=== PATIENT | female | born 1980 | race Caucasian/White ===

== ENCOUNTER 2017-02-08 06:37 | Emergency (ER) | payer OTHER ==
--- NOTE | 2017-02-08 09:15 | ED CLINICAL REPORT ---
Clinical Report - Physicians/Mid Levels [facility] [address] [place] [address] 02/08/2017 6:38 Patient: YEIMY VILLEDA Time Seen: 06:52. Arrived- By private vehicle. Historian- patient. HISTORY OF PRESENT ILLNESS Chief Complaint: SORE THROAT. This started yesterday and is still present. It was abrupt in onset and has been constant and waxing/waning. Pain described as moderate. The patient has had a sore throat, nasal congestion and a nasal discharge. Similar symptoms previously: Several times. REVIEW OF SYSTEMS No chills, fever, sweats, calf pain or chest pain. No cough, difficulty breathing, pedal edema, palpitations or abdominal pain. No constipation, diarrhea, nausea, vomiting or urinary problems. All systems otherwise negative, except as recorded above. PAST HISTORY Problems: Hypertension. Laceration. Additional Surgeries: . Knee Surgery. Medications: AmLODIPine Besylate Oral. Atenolol Oral. Wellbutrin Oral. Allergies: LIsinopril. SOCIAL HISTORY Never smoker. No alcohol use or drug use. FAMILY HISTORY No significant family medical history. ADDITIONAL NOTES The nursing notes have been reviewed. PHYSICAL EXAM Vital Signs: 02/08/2017 06:45 BP: 126/74. HR: 97. RR: 18. O2 saturation: 100%. Temp: 98.7 F. Pain level now: 4/10. Have been reviewed. Appearance: Alert. No acute distress. Head: No mandibular swelling or maxillary swelling. Eyes: Pupils equal, round and reactive to light. ENT: Minimal, thick, white nasal discharge present. Pharyngeal erythema. Lips normal. Gums normal. No trismus present. Uvula midline. No tonsillar exudate or peritonsillar mass. Neck: Normal inspection. Trachea midline. No adenopathy. Thyroid normal. Neck supple. CVS: Normal heart rate and rhythm. Heart sounds normal. Respiratory: No respiratory distress. Breath sounds normal. Abdomen: Soft and nontender. No organomegaly. Skin: Normal skin color. No rash. Normal skin turgor. Extremities: Extremities exhibit normal ROM. LABS, X-RAYS, AND EKG Laboratory Tests: Monoscreen: (BLANCA: 02/08/2017 08:25) ( MsgRcvd 02/08/2017 09:10) Final results Test Result Flag Units (Reference) MONOSCREEN NEGATIVE (NEGATIVE) Culture, Strep Screen: (BLANCA: 02/08/2017 06:47) ( MsgRcvd 02/10/2017 11:27) Final results Test Result Flag Units (Reference) RAPID STREP SCREEN - THROAT DATE: 02/08/17 NEGATIVE SCREEN: RAPID STREP SCREEN NEGATIVE; CONFIRMATION TO FOLLOW . DATE: 02/10/17 NO BETA STREP ISOLATED: NO BETA STREP ISOLATED . PROGRESS AND PROCEDURES Course of Care: Patient is stable. Patient/family counseled. Old medical records reviewed. Disposition: Discharged. Condition: stable. CLINICAL IMPRESSION Acute viral pharyngitis nasal congestion. INSTRUCTIONS Drink plenty of fluids. Warnings: GENERAL WARNINGS: Return or contact your physician immediately if your condition worsens or changes unexpectedly, if not improving as expected, or if other problems arise. Prescription Medications: Chloraseptic spray dispense one bottle - use as directed. no refills. OTC Medications: Afrin nasal spray (Available over the counter): 1 spray to each nostril twice daily for 3 days, for congestion. Follow-up: Follow up with your doctor in seven days if not better. Understanding of the discharge instructions verbalized by patient. (Electronically signed by Migue Matthew MD 02/10/2017 12:52)
--- NOTE | 2017-02-08 09:15 | ED ORDER SUMMARY ---
..... Patient: YEIMY VILLEDA OrderSheet [facility] VisitID: [id number] [address] [place] [address] 36y, F Registration Date/Time: 02/08/2017 ORDER SHEET Weight: 102.0 kg Allergies: LIsinopril GENERAL ORDERS: Culture, Strep Screen Urgent (06:54 02/08/2017 Ajit R.NIla per protocol) (6:54 Ajit R.N.) Monoscreen Urgent (08:16 02/08/2017 Milagros HOWARD) (Ack 8:20 LNations ER Tech1) (8:36 Anupam Samuel.Telma) MEDICATION ORDERS: IV FLUIDS: ORDER SHEET NOTES: [Electronically signed by Thelma Gatica R.N. (19:13 02/08/2017)] [Electronically signed by Migue Matthew MD (12:52 02/10/2017)] [Electronically locked/signed by Thelma Gatica R.N. (19:13 02/08/2017)]
--- NOTE | 2017-02-08 09:15 | ED NURSING NOTES ---
Clinical Report - Nurses [facility] [address] [place] [address] 02/08/2017 6:38 Patient: YEIMY VILLEDA TRIAGE Triage time 06:45. Acuity: LEVEL 4. Chief Complaint: SORE THROAT. --06:50 TonyaB, R.N. 06:45 02/08/17. BP: 126/74. HR: 97. RR: 18. O2 saturation: 100%. Temp: 98.7 F. Pain level now: 02/10. --06:50 TonyaB, R.N. Weight: 102 kg. Height/Length: 65 inches. BMI: 37.5. --06:49 TonyaB, R.N. Medications Wellbutrin Oral. --06:48 TonyaB, R.N. Atenolol Oral. --06:48 TonyaB, R.N. AmLODIPine Besylate Oral. --06:49 TonyaB, R.N. Allergies LIsinopril. --06:47 TonyaB, R.N. History Arrived by private vehicle. Historian: patient. Accompanied by family. This started yesterday. 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 PAST MEDICAL HX: Immunizations: up-to-date. Last normal menstrual period unknown. SOCIAL HX: Never smoker. No alcohol use or drug use. No infectious disease exposure. SELF HARM ASSESSMENT: A self harm assessment was performed. The patient answered "no" to the question "Have you recently felt down, depressed, or hopeless?", "Have you noticed less interest or pleasure in doing things?", "Do you have thoughts of harming or killing yourself?", "Are you here because you tried to hurt yourself?", "Have you ever tried to hurt yourself before today?", "Have you recently had thoughts about harming or killing others?" and "Do you have any dangerous items in your possession?". FALL RISK ASSESSMENT: Fall risk assessment completed. No fall risk identified. NUTRITIONAL RISK ASSESSMENT: The nutritional risk assessment revealed no deficiencies. FUNCTIONAL ASSESSMENT: Functional assessment: no impairments noted. LEARNING NEEDS ASSESSMENT: The learning needs assessment revealed no barriers. SKIN INTEGRITY ASSESSMENT: Skin integrity risk assessment completed. No skin integrity risk identified. --06:50 Kyle Hammond PROBLEMS: Hypertension. --06:47 Gisell Hammond. ADDITIONAL SURGERIES: . Knee Surgery. --06:47 Kyle Hammond Interventions ID band on patient. --06:50 Gisell Hammond. PHYSICAL ASSESSMENT Ambulatory to room. GENERAL / NEURO / PSYCH: Alert. Oriented X 4. Appears in no acute distress. HEENT: Pupils equal, round and reactive to light. Runny nose. Pharyngeal erythema. Mouth within normal limits upon inspection. No dental injury noted. Mucous membranes are pink. RESPIRATORY: Respirations not labored. CVS: Capillary refill less than 2 seconds. SKIN: Skin is warm and dry. Normal skin turgor. --06:50 Kyle Hammond NURSING PROGRESS NOTES Patient identifiers checked. Call light placed in reach. Side rails up. Bed placed in lowest position. Brakes of bed on. --06:51 Kyle Hammond Checked patient name and birthdate: patient confirmed. Throat swab obtained for rapid strep; labeled in the presence of the patient and sent to lab. --06:51 Kyle Hammond 07:05 02/08/17. Care transferred and report received (from LEILANI Mendez). --07:05 Thelma Gatica R.N. Care transferred and report received (from LEILANI Mendez). --07:07 Racquel Tyson R.N. 07:12 02/08/17. Patient and family informed about reason for wait and about plan of care. ( Patient is resting quietly in room. Lights dimmed.). --07:12 Thelma Gatica R.N. 07:33 02/08/17. The patient reports no complaints and she is calm and resting quietly. --07:33 Jose R Ham R.N. 07:52 02/08/17. Patient informed about reason for wait and about plan of care. --07:52 Thelma Gatica R.N. 07:51 02/08/17. BP: 127/82. HR: 85. RR: 15. O2 saturation: 98%. Temp: deferred. Pain level now: 05/12. --07:52 Thelma Gatica R.N. DISPOSITION / DISCHARGE 09:44 02/08/17. No learning barriers present. Discharge instructions provided and reviewed with the patient and family. Treatments reviewed. Reviewed referrals. Patient verbalized understanding. Written instructions provided in Korean. ( Patient was concerned about the number of blood vials drawn by lab. This RN explained to the patient that only a mono test was done from those vials, as reflected in the "lab tests" section of her discharge papers. Patient verbalized understanding and stated that she had no further questions.). The patient was discharged by the physician. She was discharged home and accompanied by family. She left the Emergency Department ambulatory and via private vehicle. --09:44 Thelma Gatica R.N. 07:51 02/08/17. BP: 127/82. HR: 85. RR: 15. O2 saturation: 98%. Temp: deferred. Pain level now: 05/12. --09:44 Thelma Gatica R.N. Locked/Released at 02/08/2017 19:13 by Thelma Gatica R.N.
--- NOTE | 2017-02-08 09:15 | ED ORDER SUMMARY ---
..... Patient: YEIMY VILLEDA OrderSheet [facility] VisitID: [id number] [address] [place] [address] 36y, F Registration Date/Time: 02/08/2017 ORDER SHEET Weight: 102.0 kg Allergies: LIsinopril GENERAL ORDERS: Culture, Strep Screen Urgent (06:54 02/08/2017 Ajit R.NIla per protocol) (6:54 Ajit R.N.) Monoscreen Urgent (08:16 02/08/2017 Milagros HOWARD) (Ack 8:20 LNations ER Tech1) (8:36 Anupam Samuel.Telma) MEDICATION ORDERS: IV FLUIDS: ORDER SHEET NOTES: [Electronically signed by Thelma Gatica R.N. (19:13 02/08/2017)] [Electronically signed by Migue Matthew MD (12:52 02/10/2017)] [Electronically locked/signed by Thelma Gatica R.N. (19:13 02/08/2017)]
--- NOTE | 2017-02-08 09:15 | ED NURSING NOTES ---
Clinical Report - Nurses [facility] [address] [place] [address] 02/08/2017 6:38 Patient: YEIMY VILLEDA TRIAGE Triage time 06:45. Acuity: LEVEL 4. Chief Complaint: SORE THROAT. --06:50 TonyaB, R.N. 06:45 02/08/17. BP: 126/74. HR: 97. RR: 18. O2 saturation: 100%. Temp: 98.7 F. Pain level now: 02/10. --06:50 TonyaB, R.N. Weight: 102 kg. Height/Length: 65 inches. BMI: 37.5. --06:49 TonyaB, R.N. Medications Wellbutrin Oral. --06:48 TonyaB, R.N. Atenolol Oral. --06:48 TonyaB, R.N. AmLODIPine Besylate Oral. --06:49 TonyaB, R.N. Allergies LIsinopril. --06:47 TonyaB, R.N. History Arrived by private vehicle. Historian: patient. Accompanied by family. This started yesterday. 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 PAST MEDICAL HX: Immunizations: up-to-date. Last normal menstrual period unknown. SOCIAL HX: Never smoker. No alcohol use or drug use. No infectious disease exposure. SELF HARM ASSESSMENT: A self harm assessment was performed. The patient answered "no" to the question "Have you recently felt down, depressed, or hopeless?", "Have you noticed less interest or pleasure in doing things?", "Do you have thoughts of harming or killing yourself?", "Are you here because you tried to hurt yourself?", "Have you ever tried to hurt yourself before today?", "Have you recently had thoughts about harming or killing others?" and "Do you have any dangerous items in your possession?". FALL RISK ASSESSMENT: Fall risk assessment completed. No fall risk identified. NUTRITIONAL RISK ASSESSMENT: The nutritional risk assessment revealed no deficiencies. FUNCTIONAL ASSESSMENT: Functional assessment: no impairments noted. LEARNING NEEDS ASSESSMENT: The learning needs assessment revealed no barriers. SKIN INTEGRITY ASSESSMENT: Skin integrity risk assessment completed. No skin integrity risk identified. --06:50 Kyle Hammond PROBLEMS: Hypertension. --06:47 Gisell Hammond. ADDITIONAL SURGERIES: . Knee Surgery. --06:47 Kyle Hammond Interventions ID band on patient. --06:50 Gisell Hammond. PHYSICAL ASSESSMENT Ambulatory to room. GENERAL / NEURO / PSYCH: Alert. Oriented X 4. Appears in no acute distress. HEENT: Pupils equal, round and reactive to light. Runny nose. Pharyngeal erythema. Mouth within normal limits upon inspection. No dental injury noted. Mucous membranes are pink. RESPIRATORY: Respirations not labored. CVS: Capillary refill less than 2 seconds. SKIN: Skin is warm and dry. Normal skin turgor. --06:50 Kyle Hammond NURSING PROGRESS NOTES Patient identifiers checked. Call light placed in reach. Side rails up. Bed placed in lowest position. Brakes of bed on. --06:51 Kyle Hammond Checked patient name and birthdate: patient confirmed. Throat swab obtained for rapid strep; labeled in the presence of the patient and sent to lab. --06:51 Kyle Hammond 07:05 02/08/17. Care transferred and report received (from LEILANI Mendez). --07:05 Thelma Gatica R.N. Care transferred and report received (from LEILANI Mendez). --07:07 Racquel Tyson R.N. 07:12 02/08/17. Patient and family informed about reason for wait and about plan of care. ( Patient is resting quietly in room. Lights dimmed.). --07:12 Thelma Gatica R.N. 07:33 02/08/17. The patient reports no complaints and she is calm and resting quietly. --07:33 Jose R Ham R.N. 07:52 02/08/17. Patient informed about reason for wait and about plan of care. --07:52 Thelma Gatica R.N. 07:51 02/08/17. BP: 127/82. HR: 85. RR: 15. O2 saturation: 98%. Temp: deferred. Pain level now: 05/12. --07:52 Thelma Gatica R.N. DISPOSITION / DISCHARGE 09:44 02/08/17. No learning barriers present. Discharge instructions provided and reviewed with the patient and family. Treatments reviewed. Reviewed referrals. Patient verbalized understanding. Written instructions provided in Croatian. ( Patient was concerned about the number of blood vials drawn by lab. This RN explained to the patient that only a mono test was done from those vials, as reflected in the "lab tests" section of her discharge papers. Patient verbalized understanding and stated that she had no further questions.). The patient was discharged by the physician. She was discharged home and accompanied by family. She left the Emergency Department ambulatory and via private vehicle. --09:44 Thelma Gatica R.N. 07:51 02/08/17. BP: 127/82. HR: 85. RR: 15. O2 saturation: 98%. Temp: deferred. Pain level now: 05/12. --09:44 Thelma Gatica R.N. Locked/Released at 02/08/2017 19:13 by Thelma Gatica R.N.
--- NOTE | 2017-02-10 12:52 | ED MAR SUMMARY ---
..... Medication Administration Record [facility] [address] [place], [place] [id number] Patient: YEIMY VILLEDA Visit ID: [id number] 36y, F Weight: 102.0 kg Height/Length: 65 in BMI: 37.5 ALLERGIES: LIsinopril
--- NOTE | 2017-02-10 12:52 | ED MED RECONCILIATION SUMMARY ---
Patient: YEIMY VILLEDA Medication Reconciliation Report [facility] VisitID: [id number] [address] [place] [address] 36y, F Registration Date/Time: 02/08/2017 Weight: 102.0 kg Height/Length: 65 in. BMI: 37.5 ALLERGIES: LIsinopril The patient's Home Medications are listed below: THE FOLLOWING MEDICATIONS NEED TO BE RECONCILED: AmLODIPine Besylate Oral Atenolol Oral Wellbutrin Oral The source(s) of the original Home Medication information: Not obtained. The following Medications were given to the patient in the Emergency Department: None. The following Medications were prescribed to the patient: Afrin nasal spray (Available over the counter): 1 spray to each nostril twice daily for 3 days, for congestion. -- Migue Matthew MD Chloraseptic spraydispense one bottle - use as directed.no refills. -- Migue Matthew MD
--- NOTE | 2017-02-10 12:52 | ED MAR SUMMARY ---
..... Medication Administration Record [facility] [address] [place], [place] [id number] Patient: YEIMY VILLEDA Visit ID: [id number] 36y, F Weight: 102.0 kg Height/Length: 65 in BMI: 37.5 ALLERGIES: LIsinopril
--- NOTE | 2017-02-10 12:52 | ED DISCHARGE INSTRUCTIONS ---
Patient: YEIMY VILLEDA General Instructions [facility] VisitID: [id number] [place] [address] 36y, F Registration Date/Time: 02/08/2017 Acute viral pharyngitis nasal congestion. INSTRUCTIONS Drink plenty of fluids. Warnings: GENERAL WARNINGS: Return or contact your physician immediately if your condition worsens or changes unexpectedly, if not improving as expected, or if other problems arise. Prescription Medications: Chloraseptic spray dispense one bottle - use as directed. no refills. OTC Medications: Afrin nasal spray (Available over the counter): 1 spray to each nostril twice daily for 3 days, for congestion. Follow-up: Follow up with your doctor in seven days if not better. Understanding of the discharge instructions verbalized by patient. ADDITIONAL INFORMATION Viral Pharyngitis (Sore Throat) Your throat pain is due to an infection called "Viral Pharyngitis", commonly known as "Sore Throat". This is a contagious illness. It is spread through the air by coughing, kissing or by touching others after touching your mouth or nose. Symptoms include throat pain worse with swallowing, aching all over, headache and fever. Unlike strep throat, which is a bacterial infection, this illness does not require treatment with an antibiotic. Home Care: If your symptoms are severe, rest at home for the first 2-3 days. Children: Use acetaminophen (Tylenol) for fever, fussiness or discomfort. In infants over six months of age, you may use ibuprofen (Children's Motrin) instead of Tylenol. [NOTE: If your child has chronic liver or kidney disease or ever had a stomach ulcer or GI bleeding, talk with your zora doctor before using these medicines.] (Aspirin should never be used in anyone under 18 years of age who is ill with a fever. It may cause severe liver damage.) Adults: You may use acetaminophen (Tylenol) or ibuprofen (Motrin, Advil) to control pain or fever, unless another medicine was prescribed. [NOTE: If you have chronic liver or kidney disease or ever had a stomach ulcer or GI bleeding, talk with your doctor before using these medicines.] Throat lozenges or sprays (Chloraseptic and others) will reduce pain. Gargling with warm salt water will also reduce throat pain. Dissolve 1/2 teaspoon of salt in 1 glass of warm water. This is especially useful just before meals. Follow Up with your doctor or as directed by our staff if you are not improving over the next week. Get Prompt Medical Attention if any of the following occur: Fever over 100.5F (38.0C) oral, or over 101.5F (38.6C) rectal for more than three days New or worsening ear pain, sinus pain or headache Painful lumps in the back of your neck Unable to swallow liquids or open your mouth wide due to throat pain Trouble breathing or noisy breathing Muffled voice New rash You have been given the following additional information: Pharyngitis, Viral (Electronically signed by Migue Matthew MD 02/10/2017 12:52)
--- NOTE | 2017-02-10 12:52 | ED MED RECONCILIATION SUMMARY ---
Patient: YEIMY VILLEDA Medication Reconciliation Report [facility] VisitID: [id number] [address] [place] [address] 36y, F Registration Date/Time: 02/08/2017 Weight: 102.0 kg Height/Length: 65 in. BMI: 37.5 ALLERGIES: LIsinopril The patient's Home Medications are listed below: THE FOLLOWING MEDICATIONS NEED TO BE RECONCILED: AmLODIPine Besylate Oral Atenolol Oral Wellbutrin Oral The source(s) of the original Home Medication information: Not obtained. The following Medications were given to the patient in the Emergency Department: None. The following Medications were prescribed to the patient: Afrin nasal spray (Available over the counter): 1 spray to each nostril twice daily for 3 days, for congestion. -- Migue Matthew MD Chloraseptic spraydispense one bottle - use as directed.no refills. -- Migue Matthew MD
== END 2017-02-08 09:45 | disposition home or self-care (01) ==
LOC: ED SRH 06:37
DX: J02.9 Acute pharyngitis, unspecified (principal); R09.81 Nasal congestion; I10 Essential (primary) hypertension; Z88.8 Allergy status to other drugs, medicaments and biological substances
CPT/HCPCS: 90074; 90154; 90159; 98370